=== PATIENT | female | born 1995 | race African-American/Black ===

== ENCOUNTER 2023-12-21 08:46 | Emergency (ER) | payer SELFPAY ==
[~2023-12-21] VITALS: Ht 160 cm; Wt 95.3 kg
[~2023-12-21 08:46] MED LIST: CEFDINIR300 MG PO; PREDNISONE20 MG PO; ULTRAM 50MG50 MG PO
[2023-12-21 08:54] VITALS: TEMP 98.6
[2023-12-21 09:23] LABS: BASOPHILS % 0.3 % (0.0-1.0); EOSINOPHILS # (AUTO) 0.4 (0.0-0.4); EOSINOPHILS % 5.2 % (0.0-6.0); HEMATOCRIT 38.9 % (34.2-44.1); HEMOGLOBIN 11.9 g/dL (12.0-16.0); LYMPHOCYTES # (AUTO) 2.2 (1.0-3.2); LYMPHOCYTES % 28.5 % (18.0-39.1); MEAN CORPUSCULAR HEMOGLOBIN 25.6 pg (28-32); MEAN CORPUSCULAR HGB CONC 30.6 g/dL (31-35); MEAN CORPUSCULAR VOLUME 83.7 fL (81-99); MONOCYTES # (AUTO) 0.4 (0.2-0.8); MONOCYTES % 5.6 % (4.4-11.3); NEUTROPHILS # (AUTO) 4.7 (2.1-6.9); NEUTROPHILS % 60.3 % (38.7-80.0); PLATELET COUNT 317 x10e3/uL (140-360); RED BLOOD COUNT 4.65 x10e6/uL (3.6-5.1); RED CELL DISTRIBUTION WIDTH 14.3 % (11.7-14.4); WHITE BLOOD COUNT 7.72 x10e3/uL (4.8-10.8)
[2023-12-21] MEDS: METOCLOPRAMIDE HCL 10 MG/2ML VIAL IV ONE (09:33)
[2023-12-21] MEDS: SODIUM CHLORIDE 0.9% 1000ML 1,000 ML IV STA (09:33)
[2023-12-21 10:04] LABS: ALBUMIN/GLOBULIN RATIO 1.1 (0.8-2.0); ANION GAP 13.8 mmol/L (8-16); BILIRUBIN,TOTAL 0.5 mg/dL (0.2-1.2); CALCIUM 9.4 mg/dL (8.4-10.2); CREATININE, SERUM 0.79 mg/dL (0.57-1.11); POTASSIUM 3.8 mmol/L (3.5-5.1); TOTAL PROTEIN 7.8 g/dL (6.5-8.1)
[2023-12-21 11:45] VITALS: RESP 16
[2023-12-21 13:14] LABS: HCG,QUANTITATIVE 23762.32 mIU/mL (0-10)
[2023-12-21 13:46] VITALS: PULSE 80
[2023-12-21 14:23] VITALS: BP 114/66; PULSE 74; RESP 16; O2SAT 100
== END 2023-12-21 14:23 | disposition home or self-care (01) ==
LOC: ER 08:56
DX: O02.1 Missed abortion (principal); R10.11 Right upper quadrant pain; J45.909 Unspecified asthma, uncomplicated
CPT/HCPCS: 36415; 76705; 76801; 76817; 80053; 83690; 84702; 85025; 99284; J2765; J7030